=== PATIENT | male | born 1950 | race Caucasian/White ===

== ENCOUNTER 2022-12-08 16:47 | Observation (INO) | payer OTHER ==
[2022-12-08] MEDS ORDERED: Nitroglycerin 2% Ointment 1 INCH/1 GM Packet ONE (17:49)
[2022-12-08] MEDS ORDERED: Furosemide 40 MG/4 ML VIAL ONE (17:49)
[2022-12-08] MEDS ORDERED: Labetalol HCl 100 MG/20 ML VIAL ONE (17:50)
[2022-12-08 18:30] LABS: #Eosinphils 0.2 10x3/uL (0.0-0.5); #Monocytes 0.7 10x3/uL (0.0-1.1); #Neutrophils 5.2 10x3/uL (1.5-8.4); %Basophils 0.4 % (0.0-2.0); %Eosinophils 3.1 % (0.0-6.0); %Monocytes 9.6 % (0.0-10.0); %Neutrophils 76.8 % (40.0-75.0); Hematocrit 45.9 % (38.8-50.0); Hemoglobin 15.6 g/dL (13.5-17.5); Mean Corpuscular Hemoglobin 28.4 pg (27.0-33.0); Mean Corpuscular Volume 83.5 fl (81.2-95.1); Mean Platelet Volume 10.9 fl (7.4-10.4); Platelet Count 256 10x3/uL (150-450); RBC Distribution Width 13.9 % (11.5-14.5); White Blood Cell (WBC) Count 6.8 10x3/uL (3.5-10.5)
[2022-12-08 18:47] LABS: ALT (SGPT) 10 U/L (8-55); AST (SGOT) 12 U/L (5-34); Albumin 3.9 g/dL (3.4-4.8); Alkaline Phosphatase 109 U/L (40-110); Anion Gap 16 mmol/L (10-20); BUN (Urea Nitrogen) 34 mg/dL (8.4-25.7); Bilirubin, Total 0.4 mg/dL (0.2-1.2); Calc. Creatinine Clearance 0 mL/min (70-130); Calcium 9.5 mg/dL (7.8-10.44); Carbon Dioxide 22 mmol/L (23-31); Chloride 105 mmol/L (98-107); Estimated GFR 53; Globulin 2.5 g/dL (2.4-3.5); Glucose 359 mg/dL (83-110); Potassium 4.3 mmol/L (3.5-5.1); Protein, Total 6.4 g/dL (5.8-8.1); Sodium 139 mmol/L (136-145)
[2022-12-08 18:53] LABS: Troponin I 0.044 ng/mL (< 0.028)
[2022-12-08 19:18] LABS: Bilirubin Neg (Negative); Blood, Urine Negative (Negative); Clarity Clear (Clear); Glucose, Urine (Dipstick) >=1000 mg/dL (Negative); Ketone, Urine Negative (Negative); Leukocyte Negative (Negative); Nitrite Negative (Negative); Protein, Urine (Dipstick) 15 mg/dl (Neg-Trace); Urobilinogen Normal mg/dL (Less than 2)
[2022-12-08 19:39] LABS: Bacteria/HPF 1+ HPF (None Seen); CAUTI Indications for Culture Pelvic or flank pain; RBC/HPF 0-3 HPF (0-3); Squamous Epithelial 0-3 HPF (0-3); WBC/HPF 0-3 HPF (0-3)
[2022-12-08 19:40] LABS: Urine Culture Reflex No No
[2022-12-08] MEDS ORDERED: Calcium Carbonate 500 MG ChewTAB PO PRN (21:14)
[2022-12-08] MEDS ORDERED: Acetaminophen 325 MG TAB PO PRN (21:14)
[2022-12-08] MEDS ORDERED: Dextrose 50% Abboject 50 ML SYRINGE SLOW IVP PRN (21:14)
[2022-12-08] MEDS ORDERED: Dextrose 5% in Water 1,000 ML IV PRN (21:14)
[2022-12-08] MEDS ORDERED: Glucagon 1 MG/ML KIT IM PRN (21:14)
[2022-12-08] MEDS ORDERED: Senokot S 8.6-50 MG TAB PO PRN (21:14)
[2022-12-08] MEDS ORDERED: Ondansetron PF 4 MG/2 ML Vial IVP PRN (21:14)
[2022-12-08] MEDS ORDERED: hydrALAZINE 20 MG/ML VIAL SLOW IVP PRN (21:28)
[2022-12-08 22:33] LABS: Troponin I 0.052 ng/mL (< 0.028)
[2022-12-08 23:22] VITALS: BMI 30.4
[2022-12-08] MEDS ORDERED: Lantus 1000 UNITS/10 ML VIAL SC SCH (23:59)
[2022-12-09] MEDS ORDERED: FLU VACC QS2023(65UP)/MF59C/PF 60 MCG/0.5 ML SYRINGE IM ONE (03:00)
[2022-12-09] MEDS: HumaLOG 300 UNITS/3 ML VIAL SC PRN ×2 (06:08→14:00)
[2022-12-09 07:54] LABS: Anion Gap 17 mmol/L (10-20); BUN (Urea Nitrogen) 30 mg/dL (8.4-25.7); Calc. Creatinine Clearance 70 mL/min (70-130); Calcium 9.7 mg/dL (7.8-10.44); Carbon Dioxide 23 mmol/L (23-31); Chloride 105 mmol/L (98-107); Estimated GFR 63; Glucose 221 mg/dL (83-110); Potassium 3.5 mmol/L (3.5-5.1); Sodium 141 mmol/L (136-145)
[2022-12-09] MEDS ORDERED: Ferrous Sulfate 325 MG TAB PO SCH (08:00)
[2022-12-09] MEDS ORDERED: Furosemide 20 MG TAB PO SCH (09:00)
[2022-12-09] MEDS ORDERED: Clopidogrel Bisulfate 75 MG TAB PO SCH (09:00)
[2022-12-09] MEDS ORDERED: Aspirin 81 mg Enteric Coated Tablet PO SCH (09:00)
[2022-12-09] MEDS ORDERED: Cyanocobalamin (Vitamin B-12) 1,000 MCG TAB PO SCH (09:00)
[2022-12-09] MEDS ORDERED: Lantus 1000 UNITS/10 ML VIAL SC SCH (09:00)
[2022-12-09] MEDS ORDERED: Amlodipine 5 MG TAB PO SCH (09:00)
[2022-12-09 09:27] LABS: Troponin I 0.047 ng/mL (< 0.028)
[2022-12-09] MEDS: glipiZIDE 5 MG TAB PO SCH ×2 (09:36→17:23)
[2022-12-09] MEDS: Carvedilol 6.25 MG TAB PO SCH ×2 (09:36→17:23)
[2022-12-09] MEDS ORDERED: hydrALAZINE 20 MG/ML VIAL SLOW IVP PRN (11:44)
[2022-12-09 17:27] VITALS: BP 162/90; TEMP 97.9
[2022-12-09] MEDS ORDERED: Terazosin HCl 5 MG CAP PO SCH (21:00)
[2022-12-09] MEDS ORDERED: Atorvastatin Calcium 20 MG TAB PO SCH (21:00)
== END 2022-12-09 18:01 ==
LOC: EEVIPCON 16:47 → CSHERS 16:47 → CSHTELE 21:13
PROVIDERS: ADMIT Student in an Organized Health Care Education/Training Program; ATTEND Internal Medicine
DX: I10 Essential (primary) hypertension (principal); E78.5 Hyperlipidemia, unspecified; I25.10 Atherosclerotic heart disease of native coronary artery without angina pectoris; N18.31 Chronic kidney disease, stage 3a; E11.9 Type 2 diabetes mellitus without complications; R79.89 Other specified abnormal findings of blood chemistry; N18.9 Chronic kidney disease, unspecified; F20.9 Schizophrenia, unspecified; C85.90 Non-Hodgkin lymphoma, unspecified, unspecified site; Z87.891 Personal history of nicotine dependence; Z91.199 Patient's noncompliance with other medical treatment and regimen due to unspecified reason; Z95.5 Presence of coronary angioplasty implant and graft; Z79.4 Long term (current) use of insulin; Z79.84 Long term (current) use of oral hypoglycemic drugs; Z88.8 Allergy status to other drugs, medicaments and biological substances; Z79.899 Other long term (current) drug therapy
CPT/HCPCS: 36415; 36416; 71045; 80048; 80053; 81001; 83880; 84484; 85025; 93005; 96372; 96374; 96375; G0378; J0360; J1650; J1815; J1940

== ENCOUNTER 2023-05-29 11:36 | Inpatient (IN) | payer OTHER ==
[2023-05-29] MEDS ORDERED: Ondansetron ODT 4 MG TAB PO PRN (13:09)
[2023-05-29] MEDS ORDERED: Ondansetron PF 4 MG/2 ML Vial IVP PRN (13:09)
[2023-05-29] MEDS ORDERED: Dextrose 5% in Water 1,000 ML IV PRN (13:15)
[2023-05-29] MEDS ORDERED: Nitroglycerin 0.4 MG TAB (25 Tab Bottle) SL PRN (13:15)
[2023-05-29] MEDS ORDERED: Dextrose 50% Abboject 50 ML SYRINGE SLOW IVP PRN (13:15)
[2023-05-29] MEDS ORDERED: Glucagon 1 MG/ML KIT IM PRN (13:15)
[2023-05-29 13:21] LABS: Troponin I 0.991 ng/mL (< 0.028)
[2023-05-29 14:12] LABS: Troponin I 1.124 ng/mL (< 0.028)
[2023-05-29 16:06] LABS: Lactic Acid 3.4 mmol/L (0.5-2.2)
[2023-05-29] MEDS: Acetaminophen 325 MG TAB PO PRN (16:34)
[2023-05-29 16:39] LABS: Free T4 (Free Thyroxine) 0.92 ng/dL (0.70-1.48)
[2023-05-29] MEDS: Aspirin 325 MG TAB PO SCH (17:28)
[2023-05-29] MEDS ORDERED: Cefepime 2 GM in Sodium Chloride 0.9% 100 ML IVPB SCH (17:30)
[2023-05-29 17:31] LABS: Critical Call Chem Troponin I NUR.TF1 AT 17:28; Troponin I 1.112 ng/mL (< 0.028)
[2023-05-29] MEDS ORDERED: Vancomycin 1.5 GRAM/300 ML BAG 1.5 GM in Premix 1 BAG IVPB SCH (18:30)
[2023-05-29] MEDS: VANCOMYCIN 2 GRAM/400 ML BAG 2 GM in Premix 1 BAG IVPB SCH (18:39)
[2023-05-29] MEDS ORDERED: Vancomycin 1 GM in Sodium Chloride 0.9% 250 ML 300 ML IVPB SCH (21:00)
[2023-05-29] MEDS: HYDROcodone/Acetaminophen 5/325 mg Tablet PO PRN (22:18)
[2023-05-29] MEDS: Cefepime 2 GM in Sodium Chloride 0.9% 100 ML IVPB SCH (22:19)
[2023-05-29] MEDS: Famotidine/PF 20 mg/2ml Vial SLOW IVP SCH (22:19)
[2023-05-29] MEDS: Terazosin HCl 5 MG CAP PO SCH (22:20)
[2023-05-29] MEDS: Famotidine 20 MG TAB PO SCH (22:21)
[2023-05-30 00:55] LABS: Lactic Acid 1.4 mmol/L (0.5-2.2)
[2023-05-30 03:59] LABS: Hematocrit 34.6 % (38.8-50.0); Hemoglobin 11.4 g/dL (13.5-17.5); Mean Corpuscular HGB CONC 32.9 g/dL (32.0-36.0); Mean Corpuscular Hemoglobin 29.1 pg (27.0-33.0); Mean Corpuscular Volume 88.3 fl (81.2-95.1); Mean Platelet Volume 11.2 fl (7.4-10.4); Platelet Count 150 10x3/uL (150-450); RBC Distribution Width 15.8 % (11.5-14.5); Red Blood Cell (RBC) Count 3.92 10x6/uL (4.32-5.72); White Blood Cell (WBC) Count 15.2 10x3/uL (3.5-10.5)
[2023-05-30 04:02] LABS: ALT (SGPT) 17 U/L (8-55); AST (SGOT) 56 U/L (5-34); Albumin 2.8 g/dL (3.4-4.8); Alkaline Phosphatase 40 U/L (40-110); Anion Gap 17 mmol/L (10-20); BUN (Urea Nitrogen) 35 mg/dL (8.4-25.7); Bilirubin, Total 0.5 mg/dL (0.2-1.2); Calc. Creatinine Clearance 74 mL/min (70-130); Calcium 9.2 mg/dL (7.8-10.44); Carbon Dioxide 17 mmol/L (23-31); Cardiac Risk 1.9 (Less than 4.5); Chloride 107 mmol/L (98-107); Cholesterol 79 mg/dl (< 200 Desired); Estimated GFR 57; Globulin 3.2 g/dL (2.4-3.5); Glucose 166 mg/dL (83-110); HDL Cholesterol 41 mg/dL (>60 Neg Risk); LDL Cholesterol, Calculated 24 mg/dL; Sodium 137 mmol/L (136-145); Triglycerides 68 mg/dL (Less than 150)
[2023-05-30 04:04] LABS: Vancomycin, Random 18.1 ug/mL (See Comment)
[2023-05-30 05:11] LABS: Platelet Adequacy Comment Appears Adequate; RBC Morph Comment Within Normal Limits
[2023-05-30 05:13] LABS: MDiff Complete? YES; Manual Diff?? YES
[2023-05-30] MEDS: Acetaminophen 650 MG Suppository PR PRN (08:03)
[2023-05-30] MEDS: Furosemide 40 MG (4 mL) VIAL ONE (08:07)
[2023-05-30] MEDS: Enoxaparin 40 MG (0.4 mL) SYRINGE SC SCH (08:07)
[2023-05-30 08:40] LABS: Actual Bicarbonate (HCO3a) 19.5 mEq/L (22-28); Analyzer IN Cardio CS ICU; Base Excess (BEa) -2.5 mEq/L (-2.0 to +3.0); CO2 Tension 25.9 mmHg (35.0-45.0); Calcium, Ionized (arterial) 1.15 mmol/L (1.12-1.30); Carboxyhemoglobin (COHb) 0.2 gm% (0.0-3.0); Critical Notified Whom: ZOVAN; Hematocrit-ABG 35 % (42.0-52.0); O2 Tension (PaO2), arterial 44.4 mmHg (> 70.0); Potassium - ABG Lab 3.77 mmol/L (3.70-5.30); Puncture Site RRA; pH, Arterial 7.494 (7.35-7.45)
[2023-05-30 08:42] LABS: ALV-art Gradient 208.425 mmHg (0-20)
[2023-05-30] MEDS ORDERED: Aspirin Chewable 81 MG TAB PO SCH (09:00)
[2023-05-30] MEDS ORDERED: Clopidogrel Bisulfate 75 MG TAB PO SCH (09:00)
[2023-05-30] MEDS: Furosemide 40 MG (4 mL) VIAL SLOW IVP SCH (11:15)
[2023-05-30] MEDS: Aripiprazole 10 MG TAB PO SCH (11:52)
[2023-05-30] MEDS: Aspirin 81 mg Enteric Coated Tablet PO SCH (11:53)
[2023-05-30] MEDS: Pantoprazole 40 MG VIAL IVP SCH (11:53)
[2023-05-30] MEDS: Acetaminophen 325 MG TAB PO SCH (11:53)
[2023-05-30] MEDS: Ketorolac Tromethamine 30 MG (1 mL) VIAL IVP SCH (11:54)
[2023-05-30] MEDS: Vancomycin 1.5 GRAM/300 ML BAG 1.5 GM in Premix 1 BAG IVPB SCH (13:00)
[2023-05-30 13:08] LABS: Legionella Urinary Ag Negative (Negative); Strep pneumo Urine Ag NEGATIVE (NEGATIVE)
[2023-05-30] MEDS: HumaLOG 300 UNITS/3 ML VIAL SC PRN (16:21)
[2023-05-30] MEDS: Lactated Ringer's 1,000 ML IV SCH (22:30)
[2023-05-30] MEDS: Communication Order-Pharmacy FS ONE (22:34)
[2023-05-31 03:00] LABS: Hematocrit 30.3 % (38.8-50.0); Hemoglobin 10.2 g/dL (13.5-17.5); MDiff Complete? YES; Mean Corpuscular HGB CONC 33.7 g/dL (32.0-36.0); Mean Corpuscular Hemoglobin 28.6 pg (27.0-33.0); Mean Corpuscular Volume 84.9 fl (81.2-95.1); Mean Platelet Volume 10.9 fl (7.4-10.4); Platelet Count 129 10x3/uL (150-450); RBC Distribution Width 15.9 % (11.5-14.5); Red Blood Cell (RBC) Count 3.57 10x6/uL (4.32-5.72); White Blood Cell (WBC) Count 11.9 10x3/uL (3.5-10.5)
[2023-05-31 03:49] LABS: Anion Gap 11 mmol/L (10-20); BUN (Urea Nitrogen) 44 mg/dL (8.4-25.7); Calc. Creatinine Clearance 66 mL/min (70-130); Calcium 8.7 mg/dL (7.8-10.44); Carbon Dioxide 20 mmol/L (23-31); Chloride 109 mmol/L (98-107); Estimated GFR 50; Glucose 133 mg/dL (83-110); Magnesium 1.7 mg/dL (1.6-2.6); Potassium 3.5 mmol/L (3.5-5.1); Sodium 136 mmol/L (136-145)
[2023-05-31 03:52] LABS: Troponin I 0.899 ng/mL (< 0.028)
[2023-05-31 04:15] LABS: Band 30 % (5-11); Eosinophils 1 % (0-10); Lymphocytes 3 % (21-51); Monocytes 6 % (0-10); Neutrophil 60 % (42-75)
[2023-05-31 04:20] LABS: Microcytosis SLIGHT = 6-15 cells (100X) (0-5/hpf)
[2023-05-31 04:21] LABS: Dohle Bodies SLIGHT; Ovalocytes SLIGHT = 2-5 cells (100X) (0-1/hpf); Platelet Adequacy Comment Appears Adequate; Toxic Granulation SLIGHT
[2023-05-31] MEDS: Potassium Chloride 20 MEQ TAB PO SCH (04:23)
[2023-05-31] MEDS: Magnesium 2 GM/50 ML(in water) 2 GM in Premix 1 BAG IVPB SCH (04:23)
[2023-05-31] MEDS: Clopidogrel Bisulfate 75 MG TAB PO SCH (08:07)
[2023-05-31] MEDS: Pantoprazole 40 MG VIAL IVP SCH (08:07)
[2023-05-31 09:16] LABS: Band 29 % (5-11); Neutrophil 67 % (42-75)
[2023-05-31 09:17] LABS: Lymphocytes 2 % (21-51); Monocytes 2 % (0-10)
[2023-05-31] MEDS: Polyethylene Glycol 3350 17 GM Packet PO SCH (11:14)
[2023-06-01 03:34] LABS: Hematocrit 31.9 % (38.8-50.0); Hemoglobin 10.7 g/dL (13.5-17.5); Mean Corpuscular HGB CONC 33.5 g/dL (32.0-36.0); Mean Corpuscular Hemoglobin 28.6 pg (27.0-33.0); Mean Corpuscular Volume 85.3 fl (81.2-95.1); Mean Platelet Volume 11.9 fl (7.4-10.4); Platelet Count 142 10x3/uL (150-450); RBC Distribution Width 16.3 % (11.5-14.5); Red Blood Cell (RBC) Count 3.74 10x6/uL (4.32-5.72); White Blood Cell (WBC) Count 12.3 10x3/uL (3.5-10.5)
[2023-06-01 03:35] LABS: MDiff Complete? YES
[2023-06-01 03:46] LABS: Vancomycin, Random 23.8 ug/mL (See Comment)
[2023-06-01 03:48] LABS: Anion Gap 10 mmol/L (10-20); BUN (Urea Nitrogen) 48 mg/dL (8.4-25.7); Calc. Creatinine Clearance 57 mL/min (70-130); Calcium 8.7 mg/dL (7.8-10.44); Carbon Dioxide 20 mmol/L (23-31); Chloride 110 mmol/L (98-107); Estimated GFR 58; Glucose 222 mg/dL (83-110); Potassium 4.4 mmol/L (3.5-5.1); Sodium 136 mmol/L (136-145)
[2023-06-01 03:52] LABS: Band 20 % (5-11); Eosinophils 5 % (0-10); Lymphocytes 10 % (21-51); Monocytes 3 % (0-10); Neutrophil 61 % (42-75); Reactive Lymphocytes 1 % (0-10)
[2023-06-01 03:58] LABS: Microcytosis SLIGHT = 6-15 cells (100X) (0-5/hpf); Ovalocytes SLIGHT = 2-5 cells (100X) (0-1/hpf); Platelet Adequacy Comment Appears Adequate
[2023-06-01 04:00] LABS: Dohle Bodies SLIGHT; Toxic Granulation SLIGHT
[2023-06-01] MEDS: Polyethylene Glycol 3350 17 GM Packet PO SCH (08:38)
[2023-06-01] MEDS: Amlodipine 5 MG TAB PO SCH (08:39)
[2023-06-01] MEDS: Lantus 1000 UNITS/10 ML VIAL SC SCH (08:40)
[2023-06-01] MEDS: Ibuprofen 400 MG TAB PO PRN (12:41)
[2023-06-01] MEDS: Atorvastatin Calcium 20 MG TAB PO SCH (20:46)
[2023-06-02] MEDS: HumaLOG 300 UNITS/3 ML VIAL SC PRN (02:17)
[2023-06-02 05:28] LABS: #Basophils 0.08 10x3/uL (0.0-0.2); #Eosinphils 0.32 10x3/uL (0.0-0.5); #Monocytes 1.21 10x3/uL (0.0-1.1); #Neutrophils 11.44 10x3/uL (1.5-8.4); %Basophils 0.6 % (0.0-2.0); %Eosinophils 2.2 % (0.0-6.0); %Lymphocytes 6.2 % (18.0-47.0); %Monocytes 8.4 % (0.0-10.0); %Neutrophils 79.8 % (40.0-75.0); Hematocrit 30.1 % (38.8-50.0); Mean Corpuscular HGB CONC 33.2 g/dL (32.0-36.0); Mean Corpuscular Hemoglobin 28.7 pg (27.0-33.0); Mean Corpuscular Volume 86.2 fl (81.2-95.1); Mean Platelet Volume 11.2 fl (7.4-10.4); Platelet Count 174 10x3/uL (150-450); Red Blood Cell (RBC) Count 3.49 10x6/uL (4.32-5.72); White Blood Cell (WBC) Count 14.3 10x3/uL (3.5-10.5)
[2023-06-02 05:41] LABS: Anion Gap 11 mmol/L (10-20); BUN (Urea Nitrogen) 40 mg/dL (8.4-25.7); Calc. Creatinine Clearance 59 mL/min (70-130); Calcium 8.7 mg/dL (7.8-10.44); Carbon Dioxide 21 mmol/L (23-31); Chloride 111 mmol/L (98-107); Estimated GFR 61; Glucose 234 mg/dL (83-110); Magnesium 2.2 mg/dL (1.6-2.6); Potassium 4.7 mmol/L (3.5-5.1); Sodium 138 mmol/L (136-145)
[2023-06-02 06:28] VITALS: BMI 31.9
[2023-06-02] MEDS: Pantoprazole DR 40 MG TAB PO SCH (07:40)
[2023-06-03] MEDS: Ipratropium/Albuterol 3 ML NEB NEB PRN (02:22)
[2023-06-03 05:34] LABS: Anion Gap 11 mmol/L (10-20); BUN (Urea Nitrogen) 28 mg/dL (8.4-25.7); Calc. Creatinine Clearance 97 mL/min (70-130); Carbon Dioxide 22 mmol/L (23-31); Chloride 109 mmol/L (98-107); Estimated GFR 87; Glucose 210 mg/dL (83-110); Potassium 4.7 mmol/L (3.5-5.1); Sodium 137 mmol/L (136-145)
[2023-06-03 06:25] LABS: Manual Diff?? YES
[2023-06-03 06:26] LABS: MDiff Complete? YES; Platelet Adequacy Comment Appears Adequate; RBC Morph Comment Within Normal Limits
[2023-06-03 06:27] LABS: Band 1 % (5-11); Eosinophils 2 % (0-10); Lymphocytes 12 % (21-51); Monocytes 18 % (0-10); Neutrophil 66 % (42-75); Reactive Lymphocytes 1 % (0-10)
[2023-06-03 06:28] LABS: Hematocrit 29.9 % (38.8-50.0); Hemoglobin 9.9 g/dL (13.5-17.5); Mean Corpuscular HGB CONC 33.1 g/dL (32.0-36.0); Mean Corpuscular Hemoglobin 28.6 pg (27.0-33.0); Mean Corpuscular Volume 86.4 fl (81.2-95.1); Mean Platelet Volume 10.6 fl (7.4-10.4); Platelet Count 215 10x3/uL (150-450); Red Blood Cell (RBC) Count 3.46 10x6/uL (4.32-5.72); White Blood Cell (WBC) Count 10.9 10x3/uL (3.5-10.5)
[2023-06-03] MEDS: Furosemide 20 MG TAB PO SCH (08:52)
[2023-06-03] MEDS: Cefepime 2 GM in Sodium Chloride 0.9% 100 ML IVPB SCH (09:00)
[2023-06-03] MEDS ORDERED: Furosemide 20 MG (2 mL) VIAL SLOW IVP SCH (11:00)
[2023-06-03] MEDS: Albumin 25% 25 GM (100 mL) BOT IVPB SCH (11:53)
[2023-06-03] MEDS: Furosemide 20 MG (2 mL) VIAL SLOW IVP SCH (11:53)
[2023-06-03] MEDS: Amlodipine 5 MG TAB PO SCH (11:53)
[2023-06-04 05:04] LABS: Hematocrit 32.2 % (38.8-50.0); Hemoglobin 10.9 g/dL (13.5-17.5); Mean Corpuscular HGB CONC 33.9 g/dL (32.0-36.0); Mean Corpuscular Hemoglobin 28.7 pg (27.0-33.0); Mean Corpuscular Volume 84.7 fl (81.2-95.1); Mean Platelet Volume 10.1 fl (7.4-10.4); Platelet Count 258 10x3/uL (150-450); RBC Distribution Width 16.5 % (11.5-14.5); White Blood Cell (WBC) Count 9.5 10x3/uL (3.5-10.5)
[2023-06-04 05:13] LABS: Anion Gap 15 mmol/L (10-20); BUN (Urea Nitrogen) 31 mg/dL (8.4-25.7); Calc. Creatinine Clearance 84 mL/min (70-130); Calcium 9.5 mg/dL (7.8-10.44); Carbon Dioxide 23 mmol/L (23-31); Chloride 103 mmol/L (98-107); Estimated GFR 74; Glucose 247 mg/dL (83-110); Magnesium 1.7 mg/dL (1.6-2.6); Potassium 4.7 mmol/L (3.5-5.1); Sodium 136 mmol/L (136-145)
[2023-06-04 05:37] LABS: Band 1 % (5-11); Eosinophils 3 % (0-10); Lymphocytes 10 % (21-51); Monocytes 12 % (0-10); Reactive Lymphocytes 8 % (0-10)
[2023-06-04 05:38] LABS: MDiff Complete? YES
[2023-06-04 05:39] LABS: Microcytosis SLIGHT = 6-15 cells (100X) (0-5/hpf); Neutrophil 66 % (42-75); Platelet Adequacy Comment Appears Adequate
[2023-06-04] MEDS: Amlodipine 10 MG TAB PO SCH (08:49)
[2023-06-04] MEDS: Furosemide 40 MG (4 mL) VIAL SLOW IVP SCH ×2 (08:49→13:57)
[2023-06-04] MEDS: Albumin 25% 25 GM (100 mL) BOT IVPB SCH (10:24)
[2023-06-05 08:53] LABS: Anion Gap 14 mmol/L (10-20); BUN (Urea Nitrogen) 39 mg/dL (8.4-25.7); Calc. Creatinine Clearance 59 mL/min (70-130); Calcium 9.7 mg/dL (7.8-10.44); Carbon Dioxide 26 mmol/L (23-31); Chloride 100 mmol/L (98-107); Estimated GFR 48; Glucose 292 mg/dL (83-110); Potassium 3.7 mmol/L (3.5-5.1); Sodium 136 mmol/L (136-145)
[2023-06-05] MEDS: hydrALAZINE 25 MG TAB PO SCH ×2 (13:13→21:04)
[2023-06-05] MEDS: Lantus 1000 UNITS/10 ML VIAL SC SCH (13:14)
[2023-06-05] MEDS: Albumin 25% 25 GM (100 mL) BOT IVPB SCH (17:59)
[2023-06-05] MEDS: Cefepime 2 GM in Sodium Chloride 0.9% 100 ML IVPB SCH (21:05)
[2023-06-06 04:00] LABS: #Basophils 0.06 10x3/uL (0.0-0.2); #Eosinphils 0.26 10x3/uL (0.0-0.5); #Monocytes 1.03 10x3/uL (0.0-1.1); #Neutrophils 9.34 10x3/uL (1.5-8.4); %Basophils 0.5 % (0.0-2.0); %Eosinophils 2.2 % (0.0-6.0); %Lymphocytes 7.3 % (18.0-47.0); %Monocytes 8.6 % (0.0-10.0); %Neutrophils 77.7 % (40.0-75.0); Hematocrit 27.7 % (38.8-50.0); Hemoglobin 9.4 g/dL (13.5-17.5); Mean Corpuscular HGB CONC 33.9 g/dL (32.0-36.0); Mean Corpuscular Hemoglobin 29.2 pg (27.0-33.0); Mean Platelet Volume 10.4 fl (7.4-10.4); Platelet Count 291 10x3/uL (150-450); RBC Distribution Width 15.7 % (11.5-14.5); Red Blood Cell (RBC) Count 3.22 10x6/uL (4.32-5.72)
[2023-06-06 04:05] LABS: Anion Gap 14 mmol/L (10-20); BUN (Urea Nitrogen) 50 mg/dL (8.4-25.7); Calc. Creatinine Clearance 60 mL/min (70-130); Calcium 9.4 mg/dL (7.8-10.44); Carbon Dioxide 25 mmol/L (23-31); Chloride 103 mmol/L (98-107); Estimated GFR 49; Glucose 322 mg/dL (83-110); Potassium 3.8 mmol/L (3.5-5.1); Sodium 138 mmol/L (136-145)
[2023-06-06 09:28] VITALS: BMI 31.9
[2023-06-06] MEDS: Lantus 1000 UNITS/10 ML VIAL SC SCH ×2 (09:40→21:16)
[2023-06-06] MEDS: Gabapentin 100 MG CAP PO SCH ×2 (11:19→15:27)
[2023-06-06] MEDS: HumaLOG 300 UNITS/3 ML VIAL SC SCH (12:50)
[2023-06-06] MEDS ORDERED: Dextrose 50% Abboject 50 ML SYRINGE SLOW IVP PRN (19:59)
[2023-06-06] MEDS ORDERED: Glucagon 1 MG/ML KIT IM PRN (19:59)
[2023-06-06] MEDS ORDERED: Dextrose 5% in Water 1,000 ML IV PRN (19:59)
[2023-06-06] MEDS: Doxycycline 100 MG CAP PO SCH (21:15)
[2023-06-06] MEDS: HumaLOG 300 UNITS/3 ML VIAL SC PRN (21:16)
[2023-06-07 05:26] LABS: #Basophils 0.06 10x3/uL (0.0-0.2); #Eosinphils 0.34 10x3/uL (0.0-0.5); #Monocytes 0.82 10x3/uL (0.0-1.1); #Neutrophils 10.42 10x3/uL (1.5-8.4); %Basophils 0.5 % (0.0-2.0); %Eosinophils 2.6 % (0.0-6.0); %Lymphocytes 8.4 % (18.0-47.0); %Monocytes 6.3 % (0.0-10.0); %Neutrophils 79.9 % (40.0-75.0); Hematocrit 30.4 % (38.8-50.0); Hemoglobin 10.2 g/dL (13.5-17.5); Mean Corpuscular HGB CONC 33.6 g/dL (32.0-36.0); Mean Corpuscular Hemoglobin 28.9 pg (27.0-33.0); Mean Corpuscular Volume 86.1 fl (81.2-95.1); Mean Platelet Volume 10.5 fl (7.4-10.4); Platelet Count 388 10x3/uL (150-450); RBC Distribution Width 15.9 % (11.5-14.5); Red Blood Cell (RBC) Count 3.53 10x6/uL (4.32-5.72)
[2023-06-07 05:42] LABS: Anion Gap 14 mmol/L (10-20); BUN (Urea Nitrogen) 62 mg/dL (8.4-25.7); Calc. Creatinine Clearance 61 mL/min (70-130); Calcium 9.9 mg/dL (7.8-10.44); Carbon Dioxide 24 mmol/L (23-31); Chloride 103 mmol/L (98-107); Estimated GFR 50; Glucose 243 mg/dL (83-110); Potassium 4.3 mmol/L (3.5-5.1); Sodium 137 mmol/L (136-145)
[2023-06-07 13:45] LABS: CRP,High Sensitivity (Inhouse) 18.97 mg/dL (< or = 0.5)
[2023-06-07] MEDS ORDERED: Polyethylene Glycol 3350 17 GM Packet PO PRN (15:29)
[2023-06-08 04:20] LABS: #Basophils 0.06 10x3/uL (0.0-0.2); #Monocytes 0.71 10x3/uL (0.0-1.1); %Basophils 0.5 % (0.0-2.0); %Eosinophils 2.5 % (0.0-6.0); %Lymphocytes 8.2 % (18.0-47.0); %Monocytes 5.8 % (0.0-10.0); Hematocrit 31.4 % (38.8-50.0); Hemoglobin 10.3 g/dL (13.5-17.5); Mean Corpuscular HGB CONC 32.8 g/dL (32.0-36.0); Mean Corpuscular Hemoglobin 28.1 pg (27.0-33.0); Mean Corpuscular Volume 85.8 fl (81.2-95.1); Mean Platelet Volume 10.1 fl (7.4-10.4); Platelet Count 412 10x3/uL (150-450); RBC Distribution Width 15.8 % (11.5-14.5); Red Blood Cell (RBC) Count 3.66 10x6/uL (4.32-5.72); White Blood Cell (WBC) Count 12.2 10x3/uL (3.5-10.5)
[2023-06-08 04:26] LABS: Anion Gap 13 mmol/L (10-20); BUN (Urea Nitrogen) 60 mg/dL (8.4-25.7); Calc. Creatinine Clearance 75 mL/min (70-130); Calcium 9.7 mg/dL (7.8-10.44); Carbon Dioxide 24 mmol/L (23-31); Chloride 105 mmol/L (98-107); Estimated GFR 64; Glucose 145 mg/dL (83-110); Potassium 4.6 mmol/L (3.5-5.1); Sodium 137 mmol/L (136-145)
[2023-06-08] MEDS: Gabapentin 300 MG CAP PO SCH (21:23)
[2023-06-08] MEDS: hydrALAZINE 25 MG TAB PO SCH (21:24)
[2023-06-08] MEDS: Lantus 1000 UNITS/10 ML VIAL SC SCH (21:45)
[2023-06-09 05:45] LABS: #Basophils 0.06 10x3/uL (0.0-0.2); #Eosinphils 0.22 10x3/uL (0.0-0.5); #Monocytes 0.63 10x3/uL (0.0-1.1); #Neutrophils 6.98 10x3/uL (1.5-8.4); %Basophils 0.7 % (0.0-2.0); %Eosinophils 2.4 % (0.0-6.0); %Lymphocytes 10.3 % (18.0-47.0); %Neutrophils 77.3 % (40.0-75.0); Hematocrit 29.8 % (38.8-50.0); Hemoglobin 9.8 g/dL (13.5-17.5); Mean Corpuscular HGB CONC 32.9 g/dL (32.0-36.0); Mean Corpuscular Hemoglobin 28.4 pg (27.0-33.0); Mean Corpuscular Volume 86.4 fl (81.2-95.1); Mean Platelet Volume 10.2 fl (7.4-10.4); Platelet Count 415 10x3/uL (150-450); RBC Distribution Width 15.8 % (11.5-14.5); Red Blood Cell (RBC) Count 3.45 10x6/uL (4.32-5.72)
[2023-06-09 05:49] LABS: Anion Gap 11 mmol/L (10-20); BUN (Urea Nitrogen) 49 mg/dL (8.4-25.7); Calc. Creatinine Clearance 68 mL/min (70-130); Calcium 9.2 mg/dL (7.8-10.44); Carbon Dioxide 24 mmol/L (23-31); Chloride 106 mmol/L (98-107); Estimated GFR 57; Glucose 299 mg/dL (83-110); Potassium 4.8 mmol/L (3.5-5.1); Sodium 136 mmol/L (136-145)
[2023-06-09] MEDS: hydrALAZINE 25 MG TAB PO SCH (09:51)
[2023-06-09] MEDS: Lantus 1000 UNITS/10 ML VIAL SC SCH (09:54)
[2023-06-10 05:22] LABS: Anion Gap 13 mmol/L (10-20); BUN (Urea Nitrogen) 39 mg/dL (8.4-25.7); Calc. Creatinine Clearance 83 mL/min (70-130); Calcium 9.8 mg/dL (7.8-10.44); Carbon Dioxide 24 mmol/L (23-31); Chloride 105 mmol/L (98-107); Estimated GFR 72; Glucose 251 mg/dL (83-110); Potassium 5.2 mmol/L (3.5-5.1); Sodium 137 mmol/L (136-145)
[2023-06-10] MEDS: Lantus 1000 UNITS/10 ML VIAL SC SCH (09:25)
[2023-06-10] MEDS: Polyethylene Glycol 3350 17 GM Packet PO PRN (15:16)
[2023-06-10] MEDS: Senokot S 8.6-50 MG TAB PO SCH (21:40)
[2023-06-11] MEDS: Acetaminophen 325 MG TAB PO PRN (17:07)
[2023-06-12 07:39] LABS: Anion Gap 14 mmol/L (10-20); Calc. Creatinine Clearance 74 mL/min (70-130); Carbon Dioxide 20 mmol/L (23-31); Chloride 108 mmol/L (98-107); Estimated GFR 64; Glucose 183 mg/dL (83-110)
[2023-06-12 07:43] LABS: Calcium 9.6 mg/dL (7.6-10.4); Potassium 4.2 mmol/L (3.5-5.1); Sodium 138 mmol/L (136-145)
[2023-06-12 08:02] LABS: BUN (Urea Nitrogen) 27 mg/dL (8.4-25.7)
[2023-06-12 16:39] VITALS: BP 148/65; TEMP 98.3
== END 2023-06-12 22:30 | DRG 871 ==
LOC: CSHERS 11:36 → EEVIPCON 11:36 → CSHTELE 16:04 → CSHIMCU 05-30 10:09 → CSHTELE 05-31 13:10
PROVIDERS: ADMIT Family Medicine; ATTEND Family Medicine
PROC: 3E03329 Introduction of Other Anti-infective into Peripheral Vein, Percutaneous Approach (ICD-10-PCS; 2023-05-29)
PROC: 4A033R1 Measurement of Arterial Saturation, Peripheral, Percutaneous Approach (ICD-10-PCS; principal; 2023-05-30)
PROC: 30233J1 Transfusion of Nonautologous Serum Albumin into Peripheral Vein, Percutaneous Approach (ICD-10-PCS; 2023-06-03)
DX: A41.9 Sepsis, unspecified organism (principal); I21.A1 Myocardial infarction type 2; J18.9 Pneumonia, unspecified organism; J96.01 Acute respiratory failure with hypoxia; D84.9 Immunodeficiency, unspecified; L03.115 Cellulitis of right lower limb; N17.9 Acute kidney failure, unspecified; R65.20 Severe sepsis without septic shock; E11.22 Type 2 diabetes mellitus with diabetic chronic kidney disease; I12.9 Hypertensive chronic kidney disease with stage 1 through stage 4 chronic kidney disease, or unspecified chronic kidney disease; I25.10 Atherosclerotic heart disease of native coronary artery without angina pectoris; E78.5 Hyperlipidemia, unspecified; Z79.899 Other long term (current) drug therapy; Z79.82 Long term (current) use of aspirin; Z79.84 Long term (current) use of oral hypoglycemic drugs; Z79.4 Long term (current) use of insulin; Z88.0 Allergy status to penicillin; E11.42 Type 2 diabetes mellitus with diabetic polyneuropathy; N18.1 Chronic kidney disease, stage 1
CPT/HCPCS: 36415; 36416; 36600; 71045; 80048; 80053; 80061; 80202; 82805; 83605; 83735; 83880; 84145; 84439; 84443; 84481; 84484; 85025; 86141; 87081; 87449; 87899; 93005; 93010; 94640; 94760; 97139; C9113; J0692; J1650; J1815; J1885; J1940; J3370; J3475; J3490; J7120; J7620; P9047; S0028

== ENCOUNTER 2024-10-10 06:33 | Emergency (ER) | payer OTHER ==
[2024-10-10] MEDS ORDERED: Ondansetron PF 4 MG/2 ML Vial ONE (06:47)
[2024-10-10 07:09] LABS: #Basophils Less than 0.03 10x3/uL (0.0-0.2); #Eosinophils 0.12 10x3/uL (0.0-0.5); #Monocytes 0.14 10x3/uL (0.0-1.1); #Neutrophils 8.13 10x3/uL (1.5-8.4); %Basophils 0.2 % (0.0-2.0); %Eosinophils 1.3 % (0.0-6.0); %Lymphocytes 6.8 % (18.0-47.0); %Monocytes 1.5 % (0.0-10.0); %Neutrophils 89.8 % (40.0-75.0); Hematocrit 45.6 % (38.8-50.0); Hemoglobin 14.8 g/dL (13.5-17.5); Mean Corpuscular Hemoglobin 28.3 pg (27.0-33.0); Mean Corpuscular Volume 87.2 fL (81.2-95.1); Platelet Count 269 10x3/uL (150-450); Red Blood Cell (RBC) Count 5.23 10x6/uL (4.32-5.72); White Blood Cell (WBC) Count 9.07 10x3/uL (3.5-10.5)
[2024-10-10 07:26] LABS: Alkaline Phosphatase 101 U/L (40-110); Anion Gap 21 mmol/L (10-20); BUN (Urea Nitrogen) 36 mg/dL (8.4-25.7); Calcium 8.9 mg/dL (7.8-10.44); Carbon Dioxide 18 mmol/L (23-31); Chloride 108 mmol/L (98-107); Glucose 143 mg/dL (83-110); Magnesium 1.8 mg/dL (1.6-2.6); Potassium 3.5 mmol/L (3.5-5.1); Sodium 143 mmol/L (136-145)
[2024-10-10 07:34] LABS: Troponin I 0.025 ng/mL (< 0.028)
[2024-10-10 07:54] LABS: ALT (SGPT) 68 U/L (Less than 45); AST (SGOT) 62 U/L (11-34)
[2024-10-10 08:01] LABS: Albumin 3.4 g/dL (3.1-4.5); Bilirubin, Total 0.5 mg/dL (0.3-1.2); Calc. Creatinine Clearance 0 mL/min (70-130); Globulin 3.1 g/dL (2.4-3.5); Lipase 36 U/L (8-78)
[2024-10-10] MEDS ORDERED: Iopamidol 300 61% 100 ML VIAL FS ONE (12:45)
== END 2024-10-10 15:20 | disposition home or self-care (01) ==
LOC: CSHERS 06:33 → EEVIPCON 06:33 → CSHERS 15:20
DX: R10.32 Left lower quadrant pain (principal); R19.00 Intra-abdominal and pelvic swelling, mass and lump, unspecified site; R19.7 Diarrhea, unspecified; E11.9 Type 2 diabetes mellitus without complications; I10 Essential (primary) hypertension; E78.00 Pure hypercholesterolemia, unspecified; I25.2 Old myocardial infarction; I25.10 Atherosclerotic heart disease of native coronary artery without angina pectoris; Z95.5 Presence of coronary angioplasty implant and graft; W18.11XA Fall from or off toilet without subsequent striking against object, initial encounter; Y93.89 Activity, other specified; Y92.002 Bathroom of unspecified non-institutional (private) residence as the place of occurrence of the external cause; Z79.01 Long term (current) use of anticoagulants; Z79.4 Long term (current) use of insulin; Z79.82 Long term (current) use of aspirin
CPT/HCPCS: 36415; 36416; 74177; 80053; 83605; 83690; 83735; 83880; 84484; 85025; 87428; 93005; J2270; J2405; Q9967